=== PATIENT | male | born 1995 | race Caucasian/White ===

== ENCOUNTER 2019-10-26 20:06 | Emergency (ER) | payer SELFPAY ==
[~2019-10-26] VITALS: Ht 175.3 cm; Wt 75.0 kg
[2019-10-26 20:18] VITALS: BP 138/86
== END 2019-10-26 22:26 | disposition left against medical advice (07) ==
LOC: ER 20:06
DX: M54.9 Dorsalgia, unspecified (principal); Z53.21 Procedure and treatment not carried out due to patient leaving prior to being seen by health care provider